=== PATIENT | female | born 1965 | race African-American/Black ===

== ENCOUNTER 2021-09-28 19:00 | Emergency (ER) | payer MEDICAID ==
[~2021-09-28] VITALS: Ht 170.2 cm; Wt 72.0 kg
[2021-09-28 22:46] LABS: BASOPHILS % 0.4 % (0.0-2.0); EOSINOPHILS % 1.2 % (0.0-5.0); HEMATOCRIT. 32.2 % (36.0-48.0); HEMOGLOBIN. 10.5 g/dL (12.0-16.0); MEAN CORPUSCULAR HEMOGLOBIN 25.7 pg (28.0-32.0); MEAN CORPUSCULAR VOLUME 79.1 fL (81.0-99.0); MEAN PLATELET VOLUME 9.2 fl (7.4-10.4); MONOCYTES % 6.5 % (2.0-8.0); NEUTROPHILS % 60.9 % (40.0-76.0); PLATELET 376 x1000/uL (130-400); RED BLOOD CELL COUNT 4.08 mill/uL (4.2-5.4); RED CELL DISTRIBUTION WIDTH 14.4 % (11.6-14.6)
[2021-09-28 22:50] LABS: CLARITY URINE CLEAR (CLEAR); COLOR URINE YELLOW (YELLOW); KETONES URINE TRACE (NEGATIVE); LEUKOCYTE ESTERASE URINE TRACE (NEGATIVE); NITRITE URINE NEGATIVE (NEGATIVE); OCCULT BLOOD URINE NEGATIVE (NEGATIVE); PROTEIN URINE 1+ (NEGATIVE); SPECIFIC GRAVITY URINE 1.032 (1.005-1.030); UROBILINOGEN URINE 0.2 E.U./dL (0.2-1.0)
[2021-09-28 22:54] LABS: CHLORIDE 110 mEq/L (98-107)
[2021-09-28 22:59] LABS: ETHANOL BLOOD < 10 mg/dL
[2021-09-28 23:05] LABS: METHADONE URINE SCREEN NEGATIVE (NEGATIVE); OPIATES URINE SCREEN NEGATIVE (NEGATIVE)
[2021-09-28 23:06] LABS: *AMPHETAMINES SCREEN URINE NEGATIVE (NEGATIVE); *BARBITURATES SCREEN URINE NEGATIVE (NEGATIVE); *BENZODIAZEPINES SCREEN URINE NEGATIVE (NEGATIVE); CANNABINOID URINE SCREEN NEGATIVE (NEGATIVE); PHENCYCLIDINE URINE SCREEN NEGATIVE (NEGATIVE)
[2021-09-28 23:08] LABS: *COCAINE SCREEN URINE NEGATIVE (NEGATIVE)
[2021-09-29] MEDS ORDERED: QUETIAPINE FUMARATE 50MG TABLET PO SCH (01:45)
[2021-09-29 10:07] VITALS: BP 124/70
== END 2021-09-29 11:32 | disposition home or self-care (01) ==
LOC: ER 19:00
DX: F20.9 Schizophrenia, unspecified (principal); R45.851 Suicidal ideations; Z20.822 Contact with and (suspected) exposure to COVID-19; Z88.8 Allergy status to other drugs, medicaments and biological substances
CPT/HCPCS: 36415; 80053; 80305; 80320; 81003; 85025; 99285; C9803; U0003; U0005; G0480

== ENCOUNTER 2021-11-17 01:41 | Emergency (ER) | payer MEDICAID ==
[~2021-11-17] VITALS: Ht 170.2 cm; Wt 89.3 kg
[2021-11-17 03:30] LABS: BASOPHILS % 0.4 % (0.0-2.0); EOSINOPHILS % 0.5 % (0.0-5.0); HEMOGLOBIN. 11.1 g/dL (12.0-16.0); LYMPHOCYTES % 27.6 % (20.0-50.0); MEAN CORPUSCULAR HEMOGLOBIN 25.4 pg (28.0-32.0); MEAN CORPUSCULAR VOLUME 78.2 fL (81.0-99.0); MEAN PLATELET VOLUME 8.9 fl (7.4-10.4); MONOCYTES % 5.7 % (2.0-8.0); NEUTROPHILS % 65.8 % (40.0-76.0); PLATELET 358 x1000/uL (130-400); RED BLOOD CELL COUNT 4.35 mill/uL (4.2-5.4); RED CELL DISTRIBUTION WIDTH 15.3 % (11.6-14.6)
[2021-11-17 03:36] LABS: CHLORIDE 109 mEq/L (98-107)
[2021-11-17 03:45] LABS: ETHANOL BLOOD < 10 mg/dL
[2021-11-17] MEDS: QUETIAPINE FUMARATE 50MG TABLET PO SCH (21:42)
[2021-11-18 08:00] VITALS: BP 161/88
[2021-11-18] MEDS: QUETIAPINE FUMARATE 50MG TABLET PO SCH (09:00)
[2021-11-18] MEDS ORDERED: QUET200T MT (10:35)
== END 2021-11-18 11:42 | disposition home or self-care (01) ==
LOC: ER 01:41
DX: R45.851 Suicidal ideations (principal); I10 Essential (primary) hypertension; F20.9 Schizophrenia, unspecified; Z20.822 Contact with and (suspected) exposure to COVID-19
CPT/HCPCS: 36415; 80053; 80320; 85025; 99285; C9803; U0003; U0005; G0480